=== PATIENT | female | born 1945 | race Caucasian/White ===

== ENCOUNTER 2018-04-02 17:54 | Emergency (ER) | payer MEDICARE ==
[~2018-04-02] VITALS: Ht 162.6 cm; Wt 73.5 kg
[~2018-04-02 17:54] MED LIST: AMLO5 PO; ATOR10 PO; Acetaminophen325 M1 PO; BACL10 PO; DOCU100 PO; ESOM20 PO; IBUP400; LEVSOD100 PO; LISHYD1012 PO; ONDA4ODT; OXYC5 PO; PROC5 PO; XARELTO15 MG PO
[2018-04-02] MEDS ORDERED: ONDA4ODT MM (18:10)
[2018-04-02] MEDS ORDERED: AMLO5 PO (18:21)
[2018-04-02] MEDS ORDERED: POTCHL20ER PO (18:21)
[2018-04-02] MEDS ORDERED: LORA.5 PO (18:21)
[2018-04-02 18:41] LABS: Hematocrit 28.2 % (33.0-51.0); Hemoglobin 8.8 g/dL (11.5-16.0); Mean Corpuscular HGB 28.9 pg (26.0-34.0); Mean Corpuscular HGB Conc 31.2 g/dL (31.5-36.5); Mean Corpuscular Volume 93 fL (80-100); Mean Platelet Volume 9.5 fL (9.1-12.4); NRBC ABSOLUTE 0.02 K/mm3 (0.00-0.02); NRBC Auto 0.2 /100 WBC (0.0-0.2); Platelet Count 221 K/mm3 (150-400); RDW Coefficient Variation 17.2 % (11.7-14.2); RDW Standard Deviation 55.8 fL (35.1-46.3); Red Blood Cell Count 3.04 M/mm3 (3.80-5.20); White Blood Cell Count 12.73 K/mm3 (4.00-11.30)
[2018-04-02 18:53] LABS: Alanine Aminotransfer (ALT/SGP 26 U/L (12-78); Albumin, Blood 2.4 g/dL (3.4-5.0); Albumin/Globulin Ratio 0.6 (0.8-1.8); Alk Phos 189 U/L (50-136); Anion Gap 9 mmol/L (6-16); Aspartate Aminotrans (AST/SGOT 28 U/L (12-37); Bilirubin, Total 0.3 mg/dL (0.1-1.0); Blood Urea Nitrogen 13 mg/dL (8-24); Bun/Creatinine Ratio 16.6 (12.0-20.0); CO2, Blood 30 mmol/L (21-32); Calcium, Blood 8.1 mg/dL (8.5-10.1); Chloride, Blood 98 mmol/L (98-108); Creatinine, Blood 0.78 mg/dL (0.40-1.00); Globulin, Blood 4.1 g/dL (2.2-4.0); Glomerular Filtration Rate >60 (60-); Glucose, Blood 90 mg/dL (70-99); Potassium, Blood 2.8 mmol/L (3.5-5.5); Sodium, Blood 137 mmol/L (136-145); Total Protein, Blood 6.5 g/dL (6.4-8.2)
[2018-04-02 18:59] LABS: Source, Urine Catheter
[2018-04-02 19:01] LABS: BAND PERCENT MAN 5 % (0-8); BASOPHILS PERCENT MAN 0 % (0-2); EOSINOPHILS ABSOLUTE MAN 0.25 K/mm3 (0.00-0.68); EOSINOPHILS PERCENT MAN 2 % (0-6); LYMPHOCYTES ABSOLUTE MAN 0.89 K/mm3 (0.84-5.20); LYMPHOCYTES PERCENT MAN 7 % (21-46); MONOCYTES PERCENT MAN 4 % (4-13); NEUTROPHILS ABSOLUTE MAN 11.07 K/mm3 (1.96-9.15); SEG NEUTROPHILS PERCENT MAN 82 % (41-73); TOTAL CELLS COUNTED 100
[2018-04-02 19:05] LABS: Bilirubin, Urine Neg (Neg); Blood, Urine Neg (Neg); Glucose Qualitative, Urine Neg (Neg); Ketones, Urine 3+ (Neg); Leukocyte Esterase, Urine Neg (Neg); Nitrite, Urine Neg (Neg); Protein, Urine 2+ (Neg); Urobilinogen, Urine NORM (Normal); pH, Urine 6.5 (5.0-8.0)
[2018-04-02 19:07] LABS: Appearance, Urine Clear (Clear); Color, Urine Yellow (P-Yellow)
[2018-04-02 19:13] LABS: Bacteria Few /hpf; Hyaline Casts 0-2 /lpf (0-2); Red Blood Cells, Urine 0-2 /hpf (0-2); Squamous Epithelial Cells Not Seen /hpf (Few); Transitional Epithelial Cells Few /hpf (0-Rare); White Blood Cells, Urine 0-2 /hpf (0-5)
== END 2018-04-02 21:39 | disposition home or self-care (01) ==
LOC: ER 17:54
PROVIDERS: Physician Assistant
DX: R10.84 Generalized abdominal pain (principal); I10 Essential (primary) hypertension; E03.9 Hypothyroidism, unspecified; Z88.0 Allergy status to penicillin; Z88.6 Allergy status to analgesic agent; Z79.899 Other long term (current) drug therapy; Z87.891 Personal history of nicotine dependence; Z86.718 Personal history of other venous thrombosis and embolism; Z90.49 Acquired absence of other specified parts of digestive tract
CPT/HCPCS: 74177; 80053; 81001; 83690; 85025; 96360; 99284-25; J7030; P9612; Q9967

== ENCOUNTER → 2018-05-15 | Outpatient (CLI) | payer MEDICARE ==
[~2018-05-15] MED LIST changes: +LORA.5 PO; +ONDA4ODT MM; +POTCHL20ER PO
== END | disposition home or self-care (01) ==
LOC: LAB 13:00 → LAB SHORT 13:00 → LAB FUT 05-10 10:40
DX: R19.7 Diarrhea, unspecified (principal)
CPT/HCPCS: 87015; 87045; 87046; 87205; 87493; 87899

== ENCOUNTER 2018-09-27 11:20 | Emergency (ER) | payer MEDICARE ==
[~2018-09-27] VITALS: Ht 162.6 cm; Wt 62.1 kg
[~2018-09-27 11:20] MED LIST changes: -ATOR10 PO
[2018-09-27 11:49] LABS: BASOPHILS ABSOLUTE AUTO 0.03 K/mm3 (0.00-0.23); BASOPHILS PERCENT AUTO 1 % (0-2); EOSINOPHILS ABSOLUTE AUTO 0.01 K/mm3 (0.00-0.68); EOSINOPHILS PERCENT AUTO 0 % (0-6); Hematocrit 32.9 % (33.0-51.0); IMMATURE GRAN ABSOLUTE AUTO 0.07 K/mm3 (0.00-0.10); IMMATURE GRAN PERCENT AUTO 2 % (0-1); LYMPHOCYTES PERCENT AUTO 21 % (21-46); MONOCYTES ABSOLUTE AUTO 0.73 K/mm3 (0.16-1.47); MONOCYTES PERCENT AUTO 19 % (4-13); Mean Corpuscular HGB 31.2 pg (26.0-34.0); Mean Corpuscular HGB Conc 33.4 g/dL (31.5-36.5); Mean Corpuscular Volume 93 fL (80-100); Mean Platelet Volume 8.9 fL (9.1-12.4); NEUTROPHILS ABSOLUTE AUTO 2.16 K/mm3 (1.96-9.15); NEUTROPHILS PERCENT AUTO 57 % (41-73); Platelet Count 339 K/mm3 (150-400); RDW Coefficient Variation 14.6 % (11.7-14.2); RDW Standard Deviation 49.1 fL (35.1-46.3); Red Blood Cell Count 3.53 M/mm3 (3.80-5.20)
[2018-09-27] MEDS ORDERED: MEGE40T PO (11:54)
[2018-09-27] MEDS ORDERED: Zantac150 MG PO (11:57)
[2018-09-27 12:18] LABS: Alanine Aminotransfer (ALT/SGP 27 U/L (12-78); Albumin, Blood 3.2 g/dL (3.4-5.0); Albumin/Globulin Ratio 0.8 (0.8-1.8); Alk Phos 70 U/L (50-136); Anion Gap 6 mmol/L (6-16); Aspartate Aminotrans (AST/SGOT 12 U/L (12-37); Bilirubin, Total 0.3 mg/dL (0.1-1.0); Blood Urea Nitrogen 23 mg/dL (8-24); Bun/Creatinine Ratio 31.7 (12.0-20.0); CO2, Blood 25 mmol/L (21-32); Calcium, Blood 9.4 mg/dL (8.5-10.1); Chloride, Blood 108 mmol/L (98-108); Creatinine, Blood 0.73 mg/dL (0.40-1.00); Glomerular Filtration Rate >60 (60-); Glucose, Blood 93 mg/dL (70-99); Potassium, Blood 3.7 mmol/L (3.5-5.5); Sodium, Blood 139 mmol/L (136-145); Total Protein, Blood 7.2 g/dL (6.4-8.2); Troponin I <0.015 ng/mL (0.000-0.040)
== END 2018-09-27 13:40 | disposition home or self-care (01) ==
LOC: ER 11:20
PROVIDERS: Emergency Medicine
DX: R00.2 Palpitations (principal); C56.9 Malignant neoplasm of unspecified ovary; Z88.0 Allergy status to penicillin; Z88.6 Allergy status to analgesic agent; Z79.899 Other long term (current) drug therapy; Z79.891 Long term (current) use of opiate analgesic; I10 Essential (primary) hypertension; Z87.891 Personal history of nicotine dependence
CPT/HCPCS: 36415; 80053; 84484; 85025; 93005; 93010; 96360; 99285-25; J7030

== ENCOUNTER 2018-12-23 06:07 | Inpatient (IN) | payer MEDICARE ==
[~2018-12-23] VITALS: Ht 162.6 cm; Wt 69.0 kg
[~2018-12-23 06:07] MED LIST changes: +MEGE40T PO; +Zantac150 MG PO
[2018-12-23] MEDS ORDERED: Anti-Diarrheal2 MG PO (06:32)
[2018-12-23] MEDS ORDERED: Fentanyl1 EACH TOP (06:32)
[2018-12-23] MEDS ORDERED: ACET500 PO (06:34)
[2018-12-23] MEDS ORDERED: ESOM20 PO (06:34)
[2018-12-23 07:04] LABS: Hematocrit 35.9 % (33.0-51.0); Hemoglobin 11.4 g/dL (11.5-16.0); Mean Corpuscular HGB 28.4 pg (26.0-34.0); Mean Corpuscular HGB Conc 31.8 g/dL (31.5-36.5); Mean Corpuscular Volume 89 fL (80-100); Mean Platelet Volume 8.6 fL (9.1-12.4); Platelet Count 472 K/mm3 (150-400); RDW Coefficient Variation 14.6 % (11.7-14.2); RDW Standard Deviation 48.6 fL (35.1-46.3); Red Blood Cell Count 4.02 M/mm3 (3.80-5.20); White Blood Cell Count 5.39 K/mm3 (4.00-11.30)
[2018-12-23 07:20] LABS: Alanine Aminotransfer (ALT/SGP 14 U/L (12-78); Albumin, Blood 2.7 g/dL (3.4-5.0); Albumin/Globulin Ratio 0.6 (0.8-1.8); Alk Phos 94 U/L (50-136); Anion Gap 10 mmol/L (6-16); Aspartate Aminotrans (AST/SGOT 17 U/L (12-37); Bilirubin, Total 0.2 mg/dL (0.1-1.0); Blood Urea Nitrogen 24 mg/dL (8-24); Bun/Creatinine Ratio 30.4 (12.0-20.0); CO2, Blood 22 mmol/L (21-32); Calcium, Blood 9.4 mg/dL (8.5-10.1); Chloride, Blood 103 mmol/L (98-108); Creatinine, Blood 0.79 mg/dL (0.40-1.00); Globulin, Blood 4.3 g/dL (2.2-4.0); Glomerular Filtration Rate >60 (60-); Glucose, Blood 152 mg/dL (70-99); Sodium, Blood 135 mmol/L (136-145)
[2018-12-23 07:27] LABS: BAND PERCENT MAN 21 % (0-8); BASOPHILS ABSOLUTE MAN 0.05 K/mm3 (0.00-0.23); BASOPHILS PERCENT MAN 1 % (0-2); EOSINOPHILS ABSOLUTE MAN 0.05 K/mm3 (0.00-0.68); EOSINOPHILS PERCENT MAN 1 % (0-6); LYMPHOCYTES ABSOLUTE MAN 0.59 K/mm3 (0.84-5.20); LYMPHOCYTES PERCENT MAN 11 % (21-46); MONOCYTES ABSOLUTE MAN 0.32 K/mm3 (0.16-1.47); MONOCYTES PERCENT MAN 6 % (4-13); NEUTROPHILS ABSOLUTE MAN 4.36 K/mm3 (1.96-9.15); SEG NEUTROPHILS PERCENT MAN 60 % (41-73); TOTAL CELLS COUNTED 100
[2018-12-23 09:31] LABS: Source, Urine Clean Catch
[2018-12-23 09:45] LABS: Bilirubin, Urine Neg (Neg); Blood, Urine 3+ (Neg); Glucose Qualitative, Urine Neg (Neg); Ketones, Urine 1+ (Neg); Leukocyte Esterase, Urine 3+ (Neg); Nitrite, Urine Neg (Neg); Protein, Urine 1+ (Neg); Specific Gravity, Urine 1.005 (1.003-1.022); Urobilinogen, Urine NORM (Normal)
[2018-12-23 09:57] LABS: Appearance, Urine Clear (Clear); Color, Urine Yellow (P-Yellow)
[2018-12-23 10:04] LABS: Bacteria Mod /hpf; Red Blood Cells, Urine 0-2 /hpf (0-2); Squamous Epithelial Cells Few /hpf (Few)
--- NOTE | 2018-12-23 11:29 | NUR ---
Initial Visit: Palliative Care Consult for Advanced Care Planning, End of Life/Comfort Care. Spoke with Dr Mota and discussed case. Pt is A&OX4 and reports a tolerable 4/10 pain in her abdomen. She reports mild and managed nausea. Pt appears dyspneic as evidenced by increased respiratory rate and work of breathing. Anxiety also noted. Engaged in therapeutic discussion regarding goals of care. Pt's Bobby is present during visit. Pt reports goal of going home. Bobby reports hopefullness of antibiotic treatment success so Pt can make her oncology appointment on Sunday. Discussed prognosis and hospice as an option. Educated on hospice philosophy with V/U made by Pt and . Discussed Pt's pain and current treatment for pain. Pt reports having a Fentanyl patch 25mcg that has not been benficial. She reports taking 4,000mg of tylenol a day for breakthrough pain. Pt is agreeable for palliative care to F/U when she is admitted for symptom management and goals of care as needed. Called and spoke with Pt's oncologist's nurse and discussed case. Nurse discusses notes and is suggestive that treatments have had little benefit with Pt becoming resistant. Notes also suggestive hospice would also be appropriate. Nurse reports she will fax notes to [facility] ED. Spoke with ED mechanical planner Xin and discussed case. Palliative Care will F/U for symptom management and goals of care as needed.
[2018-12-23] MEDS ORDERED: ATOR40TA PO (12:02)
[2018-12-23] MEDS ORDERED: PROC5 PO (13:21)
[2018-12-23] MEDS ORDERED: Zofran4 MG PO (13:23)
[2018-12-23] MEDS ORDERED: IMODIUM MULTI-1 EAC1 PO (13:28)
--- NOTE | 2018-12-23 17:35 | NUR ---
DR. LADD NOTIFIED THAT PATIENTS HR REMAINS IN THE 130'S DEPSITE GOOD PAIN CONTROL. NO ORDERS RECEIVED. INSTRUCTED TO CONTINUE IV FLUIDS AND MONITOR ON TELE.
--- NOTE | 2018-12-23 17:37 | NUR ---
PATIENT A/OX4, UP WITH SBA TO BSC. SOB WITH EXERTION, 4LO2 TO MAINTAIN SATS> 90%. PATIENT USES 3LO2 AT BASELINE. ST IN THE 130'S ON TELE, DR LADD AWARE. NG TUBE PLACED TODAY BY DR. GÓMEZ, HE BELIEVES THAT PATIENT MAY HAVE A GASTRIC ULCER. NG TO LOW INTERMITTENT WALL SUCTION. PATIENT IS NPO. PAIN CONTINUES TO BE SEVERE, FENTANYL AND DILAUDID GIVEN TO TREAT. PATIENT IS ALSO WEARING A FENTANYL PATCH. 20G IV T L HAND WNL, NS @ 100ML/HR. STOOL SAMPLE NEEDED FOR A GI PANEL. PATIENT IS CALM AND COOPERATIVE WITH CARE, CALLS APPROPRIATELY FOR ASSISTANCE.
--- NOTE | 2018-12-23 17:40 | NUR ---
Spiritual Care inital note: Met with Cydney and her , Bobby, at bedside. Cydney states that she has been told by her oncologist that she has become "non-responsive to the chemo." She also admits that she knows she is dying. All that said, she is not ready to "surrender the fight." Both she and Bobby are anxious to get to oncology appt on Sunday to "see what blood work has to say." Neither appear to quite grasp what "Not responding to chemo" means. This is a second marriage for both and they have many adult children who all live out of area. When asked what the hardest part of this cancer journey has been, Cydney replies, "the thought of leaving Bobby." Both became tearful and responded well to gentle grief counsellor. Facilitated conversation concerning open expression of fears to good effect. They are non-restorationism and do not have a spiritual practice/belief. I will remain available.
[2018-12-24 04:59] LABS: Hematocrit 34.9 % (33.0-51.0); Hemoglobin 11.3 g/dL (11.5-16.0); Mean Corpuscular HGB 28.8 pg (26.0-34.0); Mean Corpuscular HGB Conc 32.4 g/dL (31.5-36.5); Mean Corpuscular Volume 89 fL (80-100); Mean Platelet Volume 9.2 fL (9.1-12.4); NRBC ABSOLUTE 0.02 K/mm3 (0.00-0.02); NRBC Auto 0.1 /100 WBC (0.0-0.2); Platelet Count 390 K/mm3 (150-400); RDW Coefficient Variation 15.3 % (11.7-14.2); RDW Standard Deviation 50.2 fL (35.1-46.3); Red Blood Cell Count 3.92 M/mm3 (3.80-5.20); White Blood Cell Count 27.28 K/mm3 (4.00-11.30)
[2018-12-24 05:27] LABS: BAND PERCENT MAN 56 % (0-8); BASOPHILS PERCENT MAN 0 % (0-2); Bun/Creatinine Ratio 15.8 (12.0-20.0); Calcium, Blood 8.8 mg/dL (8.5-10.1); Creatinine, Blood 2.41 mg/dL (0.40-1.00); EOSINOPHILS PERCENT MAN 0 % (0-6); LYMPHOCYTES ABSOLUTE MAN 1.09 K/mm3 (0.84-5.20); LYMPHOCYTES PERCENT MAN 4 % (21-46); METAMYELOCYTE ABSOLUTE MAN 2.18 K/mm3 (0.00-0.00); METAMYELOCYTE PERCENT MAN 8 % (0-0); MONOCYTES PERCENT MAN 7 % (4-13); MYELOCYTE ABSOLUTE MAN 0.54 K/mm3 (0.00-0.00); MYELOCYTE PERCENT MAN 2 % (0-0); NEUTROPHILS ABSOLUTE MAN 21.55 K/mm3 (1.96-9.15); Potassium, Blood 4.9 mmol/L (3.5-5.5); SEG NEUTROPHILS PERCENT MAN 23 % (41-73); TOTAL CELLS COUNTED 100
--- NOTE | 2018-12-24 06:19 | NUR ---
SHIFT SUMMARY- PT. RESTED ON/OFF T/O THE NIGHT. VERY PAINFUL. DILAUDID PRN GIVEN PER EMAR. NGT IN PLACE TO INTERMITTENT SUCTION. PT. UNABLE TO VOID LAST NIGHT PERFORMED BLADDER SCAN= >900. STRAIGHT CATH DONE PER PHYSICIAN ORDER WITH OUTPUT OF 400MLS. PT. TOLERATED WELL. IV TO THE LT HAND INFILTRATED. OBTAINED NEW IV ACCESS. PT. IS 1 ASSIST TO BSC. PT. VERY WEAK, AND IS SOB WITH EXERTION. DENIES NEEDS AT THIS TIME. CALL LIGHT WITHIN REACH AND SIDE RAILS UP X2. WILL CONT TO MONITOR.
--- NOTE | 2018-12-24 10:51 | NUR ---
Spoke with hospital pharmicist Wendie and Dr Leonard prior to Pt visit and discussed the frequency of breakthrough pain medication Pt is requiring. Wendie recommends increasing Pt's Fentanyl Patch from 25mcg to 37.5mcg to help manage pain. Placed order for Fentanyl patch 37.5mcg every 3 days and discontinued Fentanyl IV per V/O from Dr Leonard. Pt is resting in bed during visit. Pt appears dyspneic as evidenced by increased respiratory rate and work of breathing. She reports SOB worsens when speaking. Pt reports a tolerable 3/10 pain and just recently received pain medication. Discussed plan for increasing her Fentanyl patch dose to help manage pain and Pt is agreeable. Listened as Pt discusses her wanting her to continue to fight. Pt states she just wants to go home and be comfortable and focus on quality of life. She states chemo is poison and does not want to continue therapy. Offered to help her with conversation with her and Pt accepts offer. Pt also reports having an adverse reaction to a medication prescribed to her to help with anxiety but does not remember the name of medication. Spoke with bedside nurse Colleen and discussed case. Called [facility] and only medication they have on record that resembled medication for anxiety is Zoloft. Called Dr King's office and awaiting a return phone call from his nurse in hopes to discover medication she had an adverse reaction to. Palliative Care will remain available.
--- NOTE | 2018-12-24 12:10 | NUR ---
Pt visit this AM. Received call from bedside nurse Colleen and reports Pt's has arrived and palliative care is requested. Pt is resting in bed and appears comfortable at this time. Mild dyspnea noted. Engaged in therapeutic discussion regarding goals of care. Discussed Pt's wishes with Bobby. Bobby tearful at times and this RN offered emotional support. Discussed Pt wanting to go home and focus on comfort and quality of life. Bobby reports understanding of Pt not wanting to pursue chemotherapy any longer. Both Pt and Bobby agree that they would like to see if current treatment of IV antibiotics is benfecial before discharging home. Instructed on hospice angencies to choose from and gave brochures. Educated on hospice philosophy with V/U made by Pt and Bobby. No other concerns reported at this time. Spoke with bedside nurse Colleen and discussed case. Spokw with Dr Leonard and discussed Pt's wishes and plan. Palliative Care will remain available.
--- NOTE | 2018-12-24 13:54 | NUR ---
Spiritual Care routine visit: Cydney was reviewing hospice brochure when I entered room. Her spouse, Bobby, states that they are considering hospice "since the chemo really isn't doing anything but making Cydney sicker." Both state they are waiting for Cydney's pain and symptoms to subside before going home with hospice sevices. Bobby is also very concerned about Cydney having uncontrolled pain. I explained hospice benefits: expert pain management, equipment/supplies provided, RN available 23/10... I beleive they are still coming to terms with all of this, and may need a day or two. Further university counselor regarding current symptoms and causes may also benefit. Is Cydney going to improve? Both pt and spouse responded well to emotional affirmation and gentle university counselor. We have an easy rapport and I will remain available.
--- NOTE | 2018-12-24 15:37 | NUR ---
PATIENT UNABLE TO VOID, BLADDER SCAN SHOWED >999MLS IN BLADDER. ATTEMPTED TO STRAIGHT CATH AND WAS ONLY ABLE TO DRAIN 40CC AND THEN THE FLOW STOPPED. 3 3 OTHER NURSES ATTEMPTED STRAIGHT CATH AND THE TUBE WOULD FILL WITH URINE AND THEN STOP DRAINING. DR. LADD NOTIFIED AND I WAS INSTRUCTED TO CONTACT DR. GÓMEZ ABOUT THE ISSUE. DR. GÓMEZ'S OFFICE CALLED AND HE IS CURRENTLY IN A PROCEDURE. OFFICE TO LEAVE A MESSAGE FOR DR. GÓMEZ TO CALL WHEN ABLE.
--- NOTE | 2018-12-24 18:08 | NUR ---
PATIENT A/O X4 UP WITH SBA TO BSC. NG TUBE PULLED THIS EVENING, PATIENT DENIES ANY INCREASED PAIN OR NAUSEA. DILAUDID AND FENTANYL PATCH CONTROLLING PAIN. VALLE PLACED TODAY TO GRAVITY, ONLY DROPS OF URINE OUT. DR. LIRA AND DR. MUNOZ CONSULTING. NS DECREASED PER DR. LIRA TO 75ML/HR. 20G IV TO R HAND WNL. GI PANEL NEEDS COLLECTED, NO BM THIS SHIFT. LUNGS DIM THROUGHOUT, 4LO2 TO MAINTAIN SATS. PATIENT VERY ANXIOUS AT TIMES, ATIVAN GIVEN X1 TO CONTROL. COOPERATIVE WITH CARE, CALLS APPROPRIATELY FOR ASSISTANCE.
[2018-12-24 18:24] LABS: PCO2 Arterial 33.9 mmHg (35-45); PO2 Arterial 87.4 mmHg (80-100); pH Blood Arterial 7.31 (7.35-7.45)
--- NOTE | 2018-12-24 20:40 | NUR ---
DR LIRA REQUESTED RN CALL AND REVIEWED abg LAB RESULTS. New orders for IVF with bicARB AND am LABS. oRDERS WRITTERN LABS ORDERED.
--- NOTE | 2018-12-25 02:18 | NUR ---
pT CONTINUES npo EXCEPT FEW ICE CHIPS. No stool for GI sample. Denies acute distress. Pain complaints are minimal except abd pain with repositioning with fentanyl patch in place.
[2018-12-25 05:12] LABS: Hemoglobin 9.6 g/dL (11.5-16.0); Mean Corpuscular HGB 28.6 pg (26.0-34.0); Mean Corpuscular Volume 89 fL (80-100); Mean Platelet Volume 9.3 fL (9.1-12.4); Platelet Count 284 K/mm3 (150-400); RDW Coefficient Variation 15.6 % (11.7-14.2); RDW Standard Deviation 51.5 fL (35.1-46.3); Red Blood Cell Count 3.36 M/mm3 (3.80-5.20)
[2018-12-25 05:36] LABS: BAND PERCENT MAN 49 % (0-8); BASOPHILS PERCENT MAN 0 % (0-2); EOSINOPHILS PERCENT MAN 0 % (0-6); LYMPHOCYTES ABSOLUTE MAN 1.22 K/mm3 (0.84-5.20); LYMPHOCYTES PERCENT MAN 4 % (21-46); METAMYELOCYTE ABSOLUTE MAN 1.53 K/mm3 (0.00-0.00); METAMYELOCYTE PERCENT MAN 5 % (0-0); MONOCYTES ABSOLUTE MAN 0.61 K/mm3 (0.16-1.47); MONOCYTES PERCENT MAN 2 % (4-13); MYELOCYTE ABSOLUTE MAN 0.61 K/mm3 (0.00-0.00); MYELOCYTE PERCENT MAN 2 % (0-0); NEUTROPHILS ABSOLUTE MAN 26.62 K/mm3 (1.96-9.15); SEG NEUTROPHILS PERCENT MAN 38 % (41-73); TOTAL CELLS COUNTED 100
[2018-12-25 05:46] LABS: Uric Acid, Blood 7.9 mg/dL (2.6-6.0)
[2018-12-25 05:47] LABS: Magnesium, Blood 1.5 mg/dL (1.6-2.4)
[2018-12-25 05:49] LABS: Alanine Aminotransfer (ALT/SGP 20 U/L (12-78); Albumin, Blood 1.9 g/dL (3.4-5.0); Albumin/Globulin Ratio 0.5 (0.8-1.8); Alk Phos 93 U/L (50-136); Anion Gap 12 mmol/L (6-16); Aspartate Aminotrans (AST/SGOT 53 U/L (12-37); Bilirubin, Total 0.2 mg/dL (0.1-1.0); Blood Urea Nitrogen 56 mg/dL (8-24); Bun/Creatinine Ratio 17.3 (12.0-20.0); CO2, Blood 20 mmol/L (21-32); Calcium, Blood 7.7 mg/dL (8.5-10.1); Chloride, Blood 106 mmol/L (98-108); Creatinine, Blood 3.24 mg/dL (0.40-1.00); Globulin, Blood 3.8 g/dL (2.2-4.0); Glomerular Filtration Rate 15 (60-); Glucose, Blood 102 mg/dL (70-99); Phosphorus, Blood 5.9 mg/dL (2.5-4.9); Potassium, Blood 5.6 mmol/L (3.5-5.5); Sodium, Blood 138 mmol/L (136-145); Total Protein, Blood 5.7 g/dL (6.4-8.2)
--- NOTE | 2018-12-25 10:28 | NUR ---
Pt transfered to ICU via bed. Report given to ZECHARIAH Hampton. Belongings sent with pt.
--- NOTE | 2018-12-25 10:49 | NUR ---
Pt visit this AM. Pt just trasfered from medical floor to ICU but is PCU status. Pt reports 7/10 pain and states just receiving pain medication. As Pt was being transported into room Pt states "I want to go home on hospice". Bobby states "I think we need to have this immediate situation taken care of first". Bobby appears to be struggling with Pt's prognosis. Offered emotional and therapeutic support. Discussed goals of care and suggested it may be time to consider going home on hospice. Educated on current treatment and prognosis. Pt and report they will have further discussions. Spoke with Dr Leonard, bedside nurse Noreen, and child care teacher Rhiannon and discussed case. Spoke with Palliative Care Paper Cup Machine Tender Marissa and discussed case. Called and spoke with Dr King's nurse Leonor and suggested a supportive phone call to regarding appropriateness of hospice. Leonor reports phone call will be made. Palliative Care will remain available.
--- NOTE | 2018-12-25 12:11 | NUR ---
Spoke with Palliative Care Bi Consultantrodrick Ann and discussed case. Marissa reports visiting with Pt and . Both have decided for Pt to be placed on comfort care. Arrived to Pt's room and engaged in therapeutic discussion and confirmed Pt's wishes for comfort care. Bi Consultantrodrick Ann, bedside nurse Noreen are present during visit. Educated on comfort care philosophy with V/U made by Pt and . Pt also requests to have her port access to receive medications. Discussed the importance of notifying family. No other concerns reported at this time. Spoke with Dr Leonard and reported Pt's wishes. Placed comfort care order, comfort care order set, order for access port including access and deacess protocol for heparin, changed code status to DNR, and discontinued maintenance medications per V/O from Dr Leonard. Palliative Care will remain available.
--- NOTE | 2018-12-25 14:11 | NUR ---
UPDATE: PT PROVIDED WITH ICE CHIPS. APPEARS TO BE IN GOOD SPIRTS. IS AT BEDSIDE. PT RESTING OFF AND ON.
--- NOTE | 2018-12-25 14:54 | NUR ---
MRI: PT TO MRI AT THIS TIME.
--- NOTE | 2018-12-25 15:45 | NUR ---
Spiritual Care follow-up: Cydney was alone in room when I visited. She states that she feels that her body is dying. She says she wants to go home on hospice. Gently explained code status change. She was concerned that DNR meant no treatment whatsoever. Provided education on shift of focus from curative to comfort. She calmed and said she was ready for code change. She expresed concern about her , Bobby, and asked me to meet with him separately to explain/employment counselor. I met Bobby outside of room and we had a lengthy conversatoin about Cydney's journey. Bobby was tearful throughout. He also had a misunderstanding regarding "Comfort Care" hospice. Educated to good effect. Present in room when RN and Palliative Care RN confirmed Cydney's wishes. Bobby is concerned about caring for Cydney at home. He does not want to be alone with her when she passes and does not think he can do it. Advised it's time to call adult children. Bobby will benefit from continued employment counselor and emotional support. I will work with both pt and spouse in coming days.
--- NOTE | 2018-12-25 17:00 | NUR ---
TRANSFER: PT TRANSFERED TO MEDICAL FLOOR. PT TRANSFERED TO MEDICAL BED. COMFORT CART AT BEDSIDE.
--- NOTE | 2018-12-25 17:04 | NUR ---
REPORT RECEIVED FROM GREGORY GARCIA RN AT THIS TIME. AWAITING TRANSFER
--- NOTE | 2018-12-25 18:24 | NUR ---
SHIFT SUMMARY PT TRANSFERRED FROM ICU. PT ORIENTED TO ROOM AND EDUCATED ON FALL PREVENTION AND CALL LIGHT. PT MEDICATED FOR PAIN PER EMAR. BED IN LOW POSITION, CALL LIGHT WITHIN REACH. PT AXO, PLEASANT AND COOPERATIVE WITH CARE. SLEEPING AT THIS TIME. REFUSES FOOD AT THIS TIME WELL.
--- NOTE | 2018-12-25 18:41 | NUR ---
Pt visit this afternoon. Pt resting in bed and reports 7/10 pain but is decreasing due to just receiving pain medication. Pt reports no concerns at this time. Pt requests a spoon to help with eating her ice. Delivered to spoon to Pt. Spoke with bedside nurse Chyna, discussed case and reviewed comfort medications. Palliative Care will remain available.
--- NOTE | 2018-12-26 04:49 | NUR ---
SHIFT SUMMARY: 73 Y/O FEMALE COMFORT CARE PATIENT RESTED COMFORTABLY ALL SHIFT, VALLE DRAINING LARGE AMOUNTS TEA COLORED FLUID, C/O GENERALIZED PAIN RATED 6/10 ONCE WITH ROXANOL 20MG SL GIVEN WITH RELIEF FELT, ALERT AND ORIENTED X 4, BED ALARM APPLIED, BED LOW POSITION, CALL LIGHT AT SIDE.
--- NOTE | 2018-12-26 09:22 | NUR ---
DR LADD NOTIFIED OF BLOOD CULTURE RESULTS AT THIS TIME. PT ON COMFORT CARE
--- NOTE | 2018-12-26 12:03 | NUR ---
Comfort Care Visit: Pt resting bed and reports a tolerable 3/10 pain. Pt appears comfortable with no S/S of distress. Offered gentle and therapeutic voice. Pt expresses appreciation of care she is receiving. Pt's at bedside and reports no concerns at this time. Spoke with bedside nurse Chyna and discussed case. Chyna reports no concerns at this time. Palliative Care will remain available.
--- NOTE | 2018-12-26 17:04 | NUR ---
SHIFT SUMMARY PT AXO, PLEASANT AND COOPERATIVE WITH CARE. ON COMFORT CARE. PT DENIES PAIN. MEDICATED FOR NV ONCE PER EMAR. PT REPOSITIONED PER COMFORT. VALLE PATENT AND DRAINING. THERAPEUTIC COMMINICATION AND ACTIVE LISTENING UTILIZED WHEN SPEAKING WITH PT AND FAMILY. BED IN LOW POSTION, CALL LIGHT WITHIN REACH. PT DIET ADVANCED PER HER REQUEST AND PER DR ORDER TO REGULAR DIET. PT TOLERATING THOUGH CONTINUES TO HAVE DECREASED APPETITE.
--- NOTE | 2018-12-26 19:01 | NUR ---
Spiritual Care routine visit: Two of Cydney's sons and grandkids were present in room. Spouse, Bobby also present. Cydney appears calm and happy. She denies pain or concerns. Family planning on helping when Cydney goes home. Bobby made a few comments that led me to believe he has not completely come to terms with Cydney's dying process. He genuinely appeared unaware that Cydney would grow weaker, as he told me they would not need bed, walker, etc because "she can get around on her own just fine." Because family in such great spirits, it did not appear to be the time to educate on dying process. Informed Bobby from Palliative Care of my concerns. Industrial Conveyor Belt [employer]r [employer] will remain available.
--- NOTE | 2018-12-27 04:32 | NUR ---
SHIFT SUMMARY: 73 Y/O FEMALE RESTED COMFORTABLY ALL SHIFT, FAMILY AT SIDE AT BEGINNING OF SHIFT, C/O GENERALIZED PAIN RATED 6/10 WITH ROXANOL 20MG SL GIVEN WITH RELIEF FELT, BED LOW POSITION WITH CALL LIGHT AT SIDE, COMFORT CARE PATIENT.
--- NOTE | 2018-12-27 14:00 | NUR ---
SPOKE TO ABOUT . SHE PRESENTING WITH SOME CONFUSION ON DETAILS AND SOMETIMES. HE IS SOME TEARFUL. TALKED AT LENGHT WITH HIM ABOUT DISEASE PROCESS.
--- NOTE | 2018-12-27 18:26 | NUR ---
STOPPED TO TALK WITH PT. SHE STATES SHE THOUGHT DR LIRA WAS INVOLVED WITH CHILD KIDNAPPING. ASSURED HER THAT HE IS NOT. TALKED WITH HER A WHILE. SEEMED TO CALM DOWN. HAS TROUBLE LOOKING AT HER CELL PHONE. SOME CONFUSION NOTED.
--- NOTE | 2018-12-27 18:35 | NUR ---
PT C/O PAIN THIS AM. MED PER EMAR. DENIES PAIN EACH TIME IM IN ROOM REST OF DAY. HUSB AT BEDSIDE MOST OF DAY. NOTED SOME CONFUSION TODAY. SHE STATES TO ME THAT SHE BELIEVES DR LIRA WAS INVOLVED WITH CHILD KIDNAPPING. ASSURED HE IS NOT. SHE STRUGGLED WITH HER CELL PHONE SOME THIS AFT/ANTONINA. REMAINS PLEASANT. NO OTHER CONCERNS AT THIS TIME. BED IN LOW POSITION, CALL LITE IN REACH, BED ALARM ON FOR SAFETY
--- NOTE | 2018-12-28 04:02 | NUR ---
SHIFT SUMMARY COMFORT CARE. ORIENTED TO SELF AND PLACE. BEDCHECK ON FOR SAFETY, NO ALARMS. ABDOMEN FIRM. PT DENIES ANY PAIN, NAUSEA, OR SOB. 3L O2 VIA NC. VALLE DRAINING CLEAR NICKY URINE. PORT IN R CHEST HAS NS @ 10ML/HR. PT DENIES ANY NEEDS. NO COMPLAINTS. SLEPT MOST OF THE NIGHT.
--- NOTE | 2018-12-28 07:00 | NUR ---
PT AWAKE. DENIES PAIN. RESP SHORT SHALLOW ABOUT 28. REPOSITIONED. ATTENDS C&D. VALLE CATH IN PLACE. DARK YELLOW FLUID IN BAG. PT ON 3L O2 N/C. IV RUNNING TKO TO MEDIPORT IN CHEST WALL. TRACE EDEMA IN FEET. ABD LARGE. SOME CONFUSION NOTED. BED IN LOW POSITION, CALL LITE IN REACH, BED ALARM ON FOR SAFETY.
--- NOTE | 2018-12-28 08:30 | NUR ---
PT RESP ABOUT 28. RESPONDS TO DENY PAIN, DENIES NEEDS. REPOSITIONED PT. BED IN LOW POSITION, CALL LITE IN REACH. BED ALARM ON FOR SAFETY. CONFUSED ANSWERS AT TIMES. NONSENSICAL.
--- NOTE | 2018-12-28 09:50 | NUR ---
PT RESPIRATION 32, GUPPY BREATHING, SHORT GASPS. H/R 120. HUSB AT BEDSIDE. PT IS BARELY RESPONDING TO QUESTIONS. DENIES PAIN. FENTANYL PATCHES REMAIN IN PLACE ON CHEST. ATIVAN GIVEN FOR ANXIETY. DID NOT ALTER RESP OR H/R. I CALLED [facility] CALLED TO ROOM FEW MIN PRIOR. TALKING TO HUSB. REPOSITIONED PT. BED IN LOW POSITION, CALL LITE IN REACH, BED ALARM ON FOR SAFETY.
--- NOTE | 2018-12-28 11:01 | NUR ---
Comfort care visit with Cydney and her Bobby. Bobby is at her bedside and states that he has seen a significant physical decline in her since yesterday. Her breathing patterns have become more shallow but remain nonlabored. She is more somulent this morning. She lays with her eyes open at times but doesn't respond except when she was repositioned by staff. While turning, she moaned once but stopped as soon as she was left alone. She denied pain when her asked her earlier this morning. Skin is starting to mottle to toes and is pale. Discussed EOL symptoms with Bobby and allowed him to reminisce about their life together. He is tearful at times, but appropriate. Cydney received IV ativan during my visit this morning. Her resp rate and rhythm remained unchanged during my visit. Pt has fentanyl patches on which were placed yesterday. Bobby reports Cydney has been wearing the fentanyl patches for about the last month or so. Could try roxinol SL if pt appears to be uncomfortable or shows signs of air hunger. At this time she does appear to be comfortable. No non verbal cues of pain, anxiety or air hunger noted. Many family members have visited over the past several days. Pt's sister is coming from [place] today. Emotional support given. Bobby reports that he feels Cydney may not leave the hospital with her rapid deterioration from yesterday. He admits that Cydney wanted to go home to , however he stated that he was hesitant to take her home for fear of not being able to care for her. Allowed him to express his fears and reassured him. PC will continue to follow.
--- NOTE | 2018-12-28 18:35 | NUR ---
PT HAS BEEN SHALLOW RAPID BREATHING T/O DAY. DECLINED MORE. DID ANSWER SOME QUESTIONS EARLIER TODAY. NONE THIS AFT OR ANTONINA. AT BEDSIDE. SISTER CAME TO VISIT TODAY ALSO. HAD SOME TIME TO TALK WITH ABOUT , RECENT TRIP TO [facility] WITH HER, RECENT TRIPS TO [place]. BROUGHT HIIM A CUP OF COFFEE AND JUST TALKED. DISCUSSED CURRENT AND COMING EVENTS WITH HIS . WHAT MIGHT BE EXPECTED. HE BETTER UNDERSTANDING AND ACCEPTING OF SITIATION AT HAND. VISITED [facility] PALIATIVE CARE FOR LONG TIME TODAY, THIS SEEMS TO HAVE BEEN A GOOD HELP FOR HIM. PT TURNED REGULARLY, OXYGEN MOVED TO HER MOUTH IS MOUTH BREATHING AT THIS TIME. BED IN LOW POSITOIN, CALL LITE IN REACH, CALLS HAS NEEDS.
--- NOTE | 2018-12-29 03:10 | NUR ---
SHIFT SUMMARY PT NON-RESPONSIVE. 3L OF O2 VIA NC IN MOUTH. RR IS 25-30. HR 110'S-120'S. VALLE HAS LITTLE OUTPUT, CLEAR YELLOW. STRONG PULSES. NO SKIN MOTTLING. ABDOMEN FIRM. Q2 REPO. PT DOESN'T APPEAR TO BE IN ANY PAIN, RESTING COMFORTABLY. MEDIPORT @ 10ML/HR. AT BEDSIDE.
--- NOTE | 2018-12-29 13:35 | NUR ---
Comfort care visit to check in on Cydney and her . Cydney remains unresponsive to verbal stimuli at this time. She appears comfortable, RR mid 20s and shallow. Granddaughters at bedside are tearful but appropriate. Family members express no needs at this time. PC will remain available.
--- NOTE | 2018-12-29 17:20 | NUR ---
SHIFT SUMMARY: PT HAS BEEN RESTING IN BED WITH EYES CLOSED ALL SHIFT. PT HAS BEEN REPOSITIONED FREQUENTLY WITH PILLOWS TO OFFLOAD PRESSURE. PT FAMILY HAS BEEN AT BEDSIDE ALL SHIFT. LEONARD IS PATENT.
--- NOTE | 2018-12-30 04:23 | NUR ---
SHIFT SUMMARY NON-RESPONSIVE. RR 25-30. HR 120'S. STRONG PULSES. VALLE DRAINING CLEAR NICKY. ORAL CARE WITH MOUTH SWABS. PT WEARS 3L O2 IN MOUTH. MEDIPORT HAS NS @ 10ML/HR. FENT PATCHES TO BE REMOVED AND REPLACED TODAY. NO PRNS GIVEN, PT SEEMS TO BE RESTING COMFORTABLY. SPENT THE NIGHT. PLAN IS TO DISCUSS W/FAMILY AND CARE TEAM POSSIBLITIES OF HOSPITAL STAY OR HOME W/HOSPICE.
--- NOTE | 2018-12-30 08:58 | NUR ---
THIS NURSE CALLED TO ROOM BY WHO REPORTS THAT PT HAS STOPPED BREATHING. UPON ASSESSMENT PT HAD NO LUNG SOUNDS OR PULSE. IS AT THE BEDSIDE. DR SCHAFFER NOTIFIED. CHARGE NURSE AND PALLIATIVE CARE NOTIFIED.
--- NOTE | 2018-12-30 09:30 | NUR ---
Called to pt's room by nursing at 0855 to be notified that pt had and spouse is in her room. Went up to Cydney's room and met with Bobby at her bedside. He is tearful, but appropriate. Sat quietly with him for about a half an hour, allowing him space to reminisce and grieve her loss. He declined having me notify any family members for him. He stated that he had already taken care of that. He declined a visit from a transit man. He states that Cydney was not orthodox and that he had not been orthodox since he was a child. He has chosen [facility] as a mortuary. He expressed gratitude for the care he and Cydney had both received over the past several days. IV fluids stopped and O2 turned off at the start of my visit. Encouraged Bobby to take as much time as he needed and to call staff once he had finished saying his goodbyes. Staff updated on choice of home.
== END 2018-12-30 08:50 | DRG 871 ==
LOC: ER 06:07 → MEDS 11:26 → ICUW 12-25 10:05 → MEDS 12-25 17:24
PROVIDERS: Emergency Medicine; Internal Medicine Nephrology; ADMIT Internal Medicine
PROC: 0D9670Z Drainage of Stomach with Drainage Device, Via Natural or Artificial Opening (ICD-10-PCS; principal; 2018-12-23)
DX: A41.50 Gram-negative sepsis, unspecified (principal); K63.1 Perforation of intestine (nontraumatic); N17.9 Acute kidney failure, unspecified; C56.9 Malignant neoplasm of unspecified ovary; C78.6 Secondary malignant neoplasm of retroperitoneum and peritoneum; R18.0 Malignant ascites; M62.82 Rhabdomyolysis; Z51.5 Encounter for palliative care; R65.20 Severe sepsis without septic shock; K21.9 Gastro-esophageal reflux disease without esophagitis; E87.5 Hyperkalemia; D63.0 Anemia in neoplastic disease; Z86.718 Personal history of other venous thrombosis and embolism; Z79.01 Long term (current) use of anticoagulants; Z87.891 Personal history of nicotine dependence; I12.9 Hypertensive chronic kidney disease with stage 1 through stage 4 chronic kidney disease, or unspecified chronic kidney disease; N18.9 Chronic kidney disease, unspecified; E79.0 Hyperuricemia without signs of inflammatory arthritis and tophaceous disease; E86.9 Volume depletion, unspecified; Z92.21 Personal history of antineoplastic chemotherapy
CPT/HCPCS: 36415; 36600; 51702; 74177; 80048; 80053; 81001; 82550; 82803; 83605; 83735; 84100; 84550; 85025; 87040; 87077; 87086; 87186; 96361; 96365-59; 96367; 96375; 99285-25; C9113; J0696; J1170; J1642; J1644; J1956; J2060; J2185; J2270; J2405; J3010; J7030; J7050; J7070; Q9967